=== PATIENT | male | born 1940 | race Asian ===

== ENCOUNTER 2019-03-28 08:04 | Day surgery (SDC) | payer OTHER | END 2019-03-28 10:00 | disposition home or self-care (01) | LOC: OR 08:04 | PROC: 3E0T3TZ Introduction of Destructive Agent into Peripheral Nerves and Plexi, Percutaneous Approach (ICD-10-PCS; principal; 2019-03-28) | PROC: BR16YZZ Fluoroscopy of Lumbar Facet Joint(s) using Other Contrast (ICD-10-PCS; 2019-03-28) | DX: M47.817 Spondylosis without myelopathy or radiculopathy, lumbosacral region (principal) | CPT/HCPCS: J2001 ==